=== PATIENT | male | born 1950 | race Caucasian/White ===

== ENCOUNTER 2017-05-27 11:50 | Emergency (ER) | payer MEDICARE | END 2017-05-27 12:56 | disposition home or self-care (01) | LOC: EDH 11:50 | DX: R21 Rash and other nonspecific skin eruption (principal); E11.9 Type 2 diabetes mellitus without complications; G30.9 Alzheimer's disease, unspecified | CPT/HCPCS: 99281 ==

== ENCOUNTER 2017-06-03 14:12 | Observation (INO) | payer MEDICARE ==
[~2017-06-03] VITALS: Ht 182.9 cm; Wt 155.1 kg
[2017-06-03] MEDS ORDERED: PROMETHAZINE HCL 25 MG/ML 1ML AMPULE IM ONE (14:39)
[2017-06-03] MEDS ORDERED: SODIUM CHLORIDE 0.9% 500ML 500 ML IV ONE (14:40)
[2017-06-03 14:44] LABS: BASOPHILS % (AUTO) 0.5 % (0.0-5.0); EOSINOPHILS % (AUTO) 2.1 % (0.0-8.0); HEMATOCRIT 44.2 % (42-54); LYMPHOCYTES % (AUTO) 23.4 % (21.0-51.0); MEAN CORPUSCULAR HEMOGLOBIN 28.9 pg (27.0-33.0); MEAN CORPUSCULAR HGB CONC 33.9 g/dL (32.0-36.0); MEAN CORPUSCULAR VOLUME 85.3 fL (79-99); MONOCYTES % (AUTO) 10.6 % (3.0-13.0); NEUTROPHILS % (AUTO) 63.4 % (40.0-77.0); PLATELET COUNT (AUTO) 258 K/uL (130-400); RED BLOOD CELL COUNT(AUTO) 5.19 MIL/uL (4.50-6.20); RED CELL DISTRIBUTION WIDTH 13.3 % (11.0-15.5); WHITE BLOOD COUNT (AUTO) 11.2 K/uL (4.8-10.8)
[2017-06-03 14:52] LABS: CREATININE 0.9 mg/dL (0.5-1.5)
[2017-06-03 14:57] LABS: ALBUMIN 3.3 g/dL (3.5-5.0); BILIRUBIN,TOTAL 0.4 mg/dL (0.2-1.0); TOTAL PROTEIN, SERUM 8.1 g/dL (6.0-8.3)
[2017-06-03] MEDS ORDERED: MECLIZINE HCL 25 MG TABLET ONE (16:30)
[2017-06-03 16:36] LABS: APPEARANCE,URINE Clear (CLEAR); BILIRUBIN,URINE Negative (NEGATIVE); COLOR,URINE Yellow (YELLOW); GLUCOSE, URINE (UA) >=1000 mg/dL (NEGATIVE); KETONES,URINE Negative (NEGATIVE); LEUKOCYTE ESTERASE ,URINE Negative (NEGATIVE); NITRATE,URINE Negative (NEGATIVE); OCCULT BLOOD,URINE Negative (NEGATIVE); PROTEIN,URINE POS 2+ (NEGATIVE); UROBILINOGEN,URINE 0.2 mg/dL (0.2-1.0)
[2017-06-03 16:52] LABS: RBC,URINE 0-1 /HPF (0-1); WBC,URINE 0-1 /HPF (0-1)
[2017-06-03 16:53] LABS: BACTERIA,URINE Rare /HPF (None Seen); MUCUS,URINE Rare LPF (None Seen); SQUAMOUS EPITHELIAL CELL,UR Rare /HPF (0-2)
[2017-06-03] MEDS ORDERED: HYDRALAZINE HCL 20 MG/ML VIAL ONE (17:07)
[2017-06-03] MEDS ORDERED: SODIUM CHLORIDE 0.9% 1000ML 1,000 ML IV ONE (17:07)
[2017-06-03] MEDS ORDERED: INSULIN HUMULIN R 100 UNIT/ML 3ML ONE (17:08)
[2017-06-03 19:15] VITALS: BP 177/92
[2017-06-03] MEDS ORDERED: GLUCAGON 1MG KIT 1 MG ML IM PRN (21:15)
[2017-06-03] MEDS ORDERED: SODIUM CHLORIDE 0.9% 1000ML 1,000 ML IV SCH (21:15)
[2017-06-03] MEDS ORDERED: POTASSIUM CHLORIDE 20MEQ/100ML 100 ML IV PRN (21:15)
[2017-06-03] MEDS ORDERED: LIDOCAINE HCL-MPF 1% 2ML VIAL IVP PRN (21:15)
[2017-06-03] MEDS ORDERED: POTASSIUM CHLORIDE 20 MEQ ERTAB PO PRN (21:15)
[2017-06-03] MEDS ORDERED: POTASSIUM CHLORIDE 10% ELIXIR 20 MEQ/15 ML UDCUP PO PRN (21:15)
[2017-06-03] MEDS ORDERED: DEXTROSE 50%-WATER 50 ML DISP.SYRIN IV PRN (21:15)
[2017-06-03] MEDS: HYDRALAZINE HCL 20 MG/ML VIAL IV PRN (21:54)
[2017-06-03] MEDS: MECLIZINE HCL 25 MG TABLET PO SCH (21:55)
[2017-06-03] MEDS ORDERED: ONDANSETRON HCL MDV 20ML 2 MG/ML VIAL IVP PRN (22:00)
[2017-06-03] MEDS ORDERED: ACETAMINOPHEN 325 MG TAB PO PRN (22:00)
[2017-06-03 23:45] VITALS: BP 148/65
[2017-06-04 01:31] LABS: AMPHET/METH SCREEN,URINE NEGATIVE (NEGATIVE); BARBITURATE SCREEN, URINE NEGATIVE (NEGATIVE); BENZODIAZEPINES SCREEN,URINE NEGATIVE (NEGATIVE); CANNABINOID SCREEN,URINE NEGATIVE (NEGATIVE); COCAINE SCREEN,URINE NEGATIVE (NEGATIVE); OPIATE SCREEN,URINE NEGATIVE (NEGATIVE); PHENCYCLIDINE SCREEN,URINE NEGATIVE (NEGATIVE)
[2017-06-04 04:00] VITALS: BP 178/66
[2017-06-04 05:53] LABS: BASOPHILS % (AUTO) 0.5 % (0.0-5.0); EOSINOPHILS % (AUTO) 2.8 % (0.0-8.0); HEMATOCRIT 42.9 % (42-54); LYMPHOCYTES % (AUTO) 22.2 % (21.0-51.0); MEAN CORPUSCULAR HEMOGLOBIN 29.2 pg (27.0-33.0); MEAN CORPUSCULAR HGB CONC 34.1 g/dL (32.0-36.0); MEAN CORPUSCULAR VOLUME 85.7 fL (79-99); MONOCYTES % (AUTO) 9.9 % (3.0-13.0); NEUTROPHILS % (AUTO) 64.6 % (40.0-77.0); PLATELET COUNT (AUTO) 221 K/uL (130-400); RED BLOOD CELL COUNT(AUTO) 5.01 MIL/uL (4.50-6.20); RED CELL DISTRIBUTION WIDTH 13.2 % (11.0-15.5); WHITE BLOOD COUNT (AUTO) 10.4 K/uL (4.8-10.8)
[2017-06-04 05:55] LABS: CREATININE 0.8 mg/dL (0.5-1.5); POTASSIUM 3.5 mmol/L (3.5-5.1)
[2017-06-04 06:07] LABS: HEMOGLOBIN A1C 10.5 % (4.0-6.0)
[2017-06-04] MEDS: HYDRALAZINE HCL 20 MG/ML VIAL IV PRN (06:31)
[2017-06-04] MEDS: INSULIN HUMULIN R 100 UNIT/ML 3ML SQ SCH ×4 (07:20→21:35)
[2017-06-04 08:33] VITALS: BP 184/91
[2017-06-04] MEDS: MECLIZINE HCL 25 MG TABLET PO SCH ×3 (08:48→21:32)
[2017-06-04] MEDS: LOSARTAN 50 MG TABLET PO SCH (11:11)
[2017-06-04 11:36] VITALS: BP 175/75
[2017-06-04] MEDS ORDERED: PNEUMOCOCCAL VACCINE POLYVALENT 0.5 ML/VIAL [PPV] IM ONE (14:00)
[2017-06-04 15:45] VITALS: BP_SYST 161; BP_SYST 165; BP_DIAS 75; BP_DIAS 88
[2017-06-04 20:00] VITALS: BP 121/72
[2017-06-05] VITALS: BP 162/80
[2017-06-05 04:00] VITALS: BP 183/86
[2017-06-05] MEDS: HYDRALAZINE HCL 20 MG/ML VIAL IV PRN (06:03)
[2017-06-05] MEDS: INSULIN HUMULIN R 100 UNIT/ML 3ML SQ SCH ×2 (06:13→11:42)
[2017-06-05 07:57] VITALS: BP 165/87
[2017-06-05] MEDS: MECLIZINE HCL 25 MG TABLET PO SCH (08:49)
[2017-06-05] MEDS: LOSARTAN 50 MG TABLET PO SCH (08:49)
[2017-06-05] MEDS ORDERED: MECL-111 PO (10:43)
[2017-06-05] MEDS ORDERED: LOSA50TA2 PO (10:43)
[2017-06-05 11:22] VITALS: BP 163/90
[2017-06-05] MEDS ORDERED: KETOROLAC TROMETHAMINE 15MG/ML IV SCH (11:45)
[2017-06-05] MEDS ORDERED: MORPHINE SULFATE 2 MG/ML 1ML SYG IM SCH (11:45)
== END 2017-06-05 16:43 | disposition home or self-care (01) ==
LOC: EDH 14:12 → EDHIP 16:34 → 4CH 19:51
PROVIDERS: ADMIT Internal Medicine; ATTEND Internal Medicine
DX: R42 Dizziness and giddiness (principal); E11.65 Type 2 diabetes mellitus with hyperglycemia; I10 Essential (primary) hypertension; M48.00 Spinal stenosis, site unspecified; H54.8 Legal blindness, as defined in USA; G89.4 Chronic pain syndrome; G30.9 Alzheimer's disease, unspecified; F02.80 Dementia in other diseases classified elsewhere, unspecified severity, without behavioral disturbance, psychotic disturbance, mood disturbance, and anxiety; Z91.14 Patient's other noncompliance with medication regimen
CPT/HCPCS: 36415 ×2; 70450; 80048; 80053; 80305; 81001; 82948 ×8; 83036; 85025 ×2; 93005; 96361; 96372 ×2; 96374; 96375; 96376 ×2; 97039; 97161; 99285; G0378 ×48; G8981; G8982; G8983; J0360 ×4; J1815 ×7; J1885; J2550; J7030 ×2; J7040